=== PATIENT | female | born 1965 | race Caucasian/White ===

== ENCOUNTER → 2017-04-06 | Outpatient (CLI) | payer BC ==
[~2017-04-06] MED LIST: VICODIN 5/500 T1 TAB PO
[2017-04-06 07:54] LABS: HEMOGLOBIN 13.4 g/dL (12.2-16.2); LYMPH # 2.2 K/mm3 (0.7-4.5); LYMPH % 34.3 % (10-50.0)
[2017-04-06 09:20] LABS: BUN 14 mg/dL (7-18)
[2017-04-06 09:23] LABS: GFR (ESTIMATED) 76 ML/MIN (59-)
== END ==
LOC: LAB 07:44
PROVIDERS: Internal Medicine Adolescent Medicine
DX: E03.9 Hypothyroidism, unspecified (principal)